=== PATIENT | male | born 1990 | race Asian ===

== ENCOUNTER 2020-09-03 16:41 | Emergency (ER) | payer OTHER ==
[~2020-09-03] VITALS: Ht 177.8 cm; Wt 56.7 kg
[2020-09-03 16:51] VITALS: BP 120/76
[2020-09-03] MEDS ORDERED: Omnipaque-300 100ml vial INJ PRN (17:00)
--- NOTE | 2020-09-03 17:00 | NUR ---
ED Nurse Note: PT walked in to ed for c/o dark / black stool for about 3 days. pt denies any abd pain, denies any n/v/d. PT reports having occasional dizziness.
--- NOTE | 2020-09-03 17:10 | NUR ---
ED Nurse Note: blood sna urine sample collected and sent to lab.
--- NOTE | 2020-09-03 17:16 | NUR ---
ED Nurse Note: cxr taken at bedside.
[2020-09-03 17:31] LABS: APPEARANCE,URINE CLEAR; BILIRUBIN, URINE NEGATIVE (NEGATIVE); COLOR,URINE PALE YELLOW; GLUCOSE, URINE (UA) NEGATIVE (NEGATIVE); KETONES,URINE NEGATIVE (NEGATIVE); LEUKOCYTE ESTERASE ,URINE 1+ (NEGATIVE); NITRITE,URINE NEGATIVE (NEGATIVE); PH,URINE 7 (4.5-8.0); PROTEIN,URINE NEGATIVE (NEGATIVE); UROBILINOGEN,URINE NORMAL MG/DL (0.0-1.0)
[2020-09-03 17:32] LABS: BASOPHILS % (AUTO) 1.7 % (0.0-2.0); EOSINOPHILS % (AUTO) 2.7 % (0.0-3.0); HEMATOCRIT 31.6 % (42.0-52.0); HEMOGLOBIN 10.1 G/DL (14.2-18.0); LYMPHOCYTES % (AUTO) 34.9 % (20.0-45.0); MEAN CORPUSCULAR VOLUME 84 FL (80-99); MONOCYTES % (AUTO) 8.6 % (1.0-10.0); NEUTROPHILS % (AUTO) 52.1 % (45.0-75.0); PLATELET COUNT 297 K/UL (150-450); RED BLOOD COUNT 3.76 M/UL (4.70-6.10); RED CELL DISTRIBUTION WIDTH 14.9 % (11.6-14.8); WHITE BLOOD COUNT 5.5 K/UL (4.8-10.8)
[2020-09-03 17:42] LABS: ANION GAP 8 mmol/L (5-15); BLOOD UREA NITROGEN 22 mg/dL (7-18); CALCIUM 8.4 MG/DL (8.5-10.1); CARBON DIOXIDE 26 MMOL/L (21-32); CHLORIDE 103 MMOL/L (98-107); POTASSIUM 3.5 MMOL/L (3.5-5.1); SODIUM 137 MMOL/L (136-145)
[2020-09-03 17:46] LABS: ALANINE AMINOTRANSFERASE 17 U/L (12-78); ALBUMIN/GLOBULIN RATIO 1.3 (1.0-2.7); ALKALINE PHOSPHATASE 59 U/L (46-116); ASPARTATE AMINO TRANSFERASE 22 U/L (15-37); BILIRUBIN,TOTAL 0.4 MG/DL (0.2-1.0)
--- NOTE | 2020-09-03 17:52 | Diagnostic Imaging Report ---
EXAM: XR Chest, 1 View CLINICAL HISTORY: PAIN TECHNIQUE: Frontal view of the chest. COMPARISON: No relevant prior studies available. FINDINGS: Lungs: Unremarkable. No consolidation. Pleural space: Unremarkable. No pneumothorax. Heart: Unremarkable. No cardiomegaly. Mediastinum: Unremarkable. Bones/joints: No acute abnormality IMPRESSION: 1. No acute cardiopulmonary disease. 2. If there is continued concern recommend frontal and lateral chest radiographs or CT.
--- NOTE | 2020-09-03 18:28 | NUR ---
ED Nurse Note: pt taken to CT scan via gurney by pest technician in stable condition.
--- NOTE | 2020-09-03 18:56 | NUR ---
ED Nurse Note: back from ct
--- NOTE | 2020-09-03 19:03 | NUR ---
ED Nurse Note: Report given to TAMI Haney. Endorsed plan of care.
--- NOTE | 2020-09-03 19:09 | Diagnostic Imaging Report ---
EXAM: CT Abdomen and Pelvis With Intravenous Contrast CLINICAL HISTORY: PAIN TECHNIQUE: Axial computed tomography images of the abdomen and pelvis with intravenous contrast. CTDI is 3.20 mGy and DLP is 143.60 mGy-cm. One or more of the following dose reduction techniques were used: automated exposure control, adjustment of the mA and/or kV according to patient size, use of iterative reconstruction technique. Coronal and sagittal reformatted images were created and reviewed. COMPARISON: No relevant prior studies available. FINDINGS: Lung bases: Unremarkable. No mass. No consolidation. ABDOMEN: Liver: Unremarkable. No mass. Gallbladder and bile ducts: Unremarkable. No calcified stones. No ductal dilation. Pancreas: Unremarkable. No mass. No ductal dilation. Spleen: Unremarkable. No splenomegaly. Adrenals: Unremarkable. No mass. Kidneys and ureters: Unremarkable. No solid mass. No hydronephrosis. Stomach and bowel: Liquid small bowel contents could be incidental or could represent an infectious or inflammatory enteritis in the proper context. No obstruction. PELVIS: Appendix: Normal appendix. Bladder: Urinary bladder wall thickening could be incidental, due to high outlet pressures, or could represent cystitis. Reproductive: Unremarkable as visualized. ABDOMEN and PELVIS: Intraperitoneal space: Unremarkable. No free air. No significant fluid collection. Bones/joints: No acute fracture. No dislocation. Soft tissues: Unremarkable. Vasculature: Unremarkable. No abdominal aortic aneurysm. Lymph nodes: Unremarkable. No enlarged lymph nodes. IMPRESSION: 1. Liquid small bowel contents could be incidental or could represent an infectious or inflammatory enteritis in the proper context. 2. Urinary bladder wall thickening could be incidental, due to high outlet pressures, or could represent cystitis. 3. Otherwise no acute abnormality definitively identified to account for patient presentation. 4. Normal appendix.
--- NOTE | 2020-09-03 19:19 | Emergency Room Report ---
History of Present Illness General Chief Complaint: Gastrointestinal Bleed Source: Patient Present Illness HPI 29-year-old male with no signal past medical history here complaining of 3 days of dark stool without any active focus of bleeding. 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 Has not yet follow-up with set o type operator. Complains of intermittent abdominal pain described as cramping. Complains of acid reflux, denies nausea or vomiting. Denies any bloody emesis. Denies fever and chills, cough and congestion. Reports in the past few days he has been feeling dizzy however has not had any syncopal episode. Denies chest pain, shortness of. Denies all other associated symptoms. Reports that he chews tobacco and he chews water and says no to all other drugs. Also reports that he often drinks alcohol. Reports that he eats greasy and spicy food as well. Denies penile discharge, denies anal discharge or bleeding. Allergies: Coded Allergies: No Known Allergies (Unverified , 09/03/20) COVID-19 Screening Contact w/high risk pt: No Experienced COVID-19 symptoms?: No COVID-19 Testing performed METROLOGIST: No Patient History Past Medical History: see triage record Past Surgical History: none Pertinent Family History: none Social History: Reports: smoking, alcohol use Immunizations: UTD Reviewed Nursing Documentation: PMH: Agreed; PSxH: Agreed Nursing Documentation-PM Past Medical History: No Stated History Review of Systems All Other Systems: negative except mentioned in HPI Physical Exam Vital Signs Date Time Temp Pulse Resp B/P (MAP) Pulse Ox O2 Delivery O2 Flow Rate FiO2 09/03/20 16:50 98.4 101 18 122/80 (94) 96 Room Air Sp02 EP Interpretation: reviewed, normal General Appearance: no apparent distress, alert, GCS 15, non-toxic Head: normocephalic, atraumatic Eyes: bilateral eye normal inspection, bilateral eye PERRL ENT: hearing grossly normal, normal pharynx, no angioedema, normal voice Neck: full range of motion, supple, supple/symm/no masses Respiratory: chest non-tender, lungs clear, normal breath sounds, speaking full sentences Cardiovascular #1: regular rate, rhythm, no edema Gastrointestinal: normal bowel sounds, non tender, soft, no mass, no organomegaly, no peritonitis, no bruit, non-distended, no guarding, no rebound Rectal: deferred Genitourinary: no CVA tenderness Musculoskeletal: back normal Neurologic: alert, motor strength/tone normal, oriented x3, sensory intact, responsive, speech normal Psychiatric: judgement/insight normal, memory normal, mood/affect normal, no suicidal/homicidal ideation Skin: no rash Lymphatic: no adenopathy Medical Decision Making PA Attestation ALL Diagnosis and treatment plan reviewed and discussed with my supervising physician Dr. Delcid Diagnostic Impression: Primary Impression: Infectious enteritis Additional Impression: Anemia ER Course 29-year-old male with no signal past medical history here complaining of 3 days of dark stool without any active focus of bleeding. 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 Has not yet follow-up with set o type operator. Complains of intermittent abdominal pain described as cramping. Complains of acid reflux, denies nausea or vomiting. Denies any bloody emesis. Denies fever and chills, cough and congestion. Reports in the past few days he has been feeling dizzy however has not had any syncopal episode. Denies chest pain, shortness of. Denies all other associated symptoms. Reports that he chews tobacco and he chews water and says no to all other drugs. Also reports that he often drinks alcohol. Reports that he eats greasy and spicy food as well. Denies penile discharge, denies anal discharge or bleeding. Ddx considered but are not limited to: appendicitis, cholecystis, gastritis, gastroenteritis, UTI, pyelonephritis, SBO, diverticulitis, influenza with GI manifestation, pancreatitis Vital signs: are WNL, pt. is afebrile H&PE are most consistent with: Infectious enteritis, anemia, methamphetamine abuse, marijuana abuse ORDERS: abdominal CT, abdominal pain set, EKG, Protonix, Cipro, Flagyl was not given due to patient drinking alcohol frequently,, dicyclomine, ferrous sulfate ED INTERVENTIONS: NS bolus, DISCHARGE: At this time pt. is stable for d/c to home. Will provide printed patient care instructions, and any necessary prescriptions. Care plan and follow up instructions have been discussed with the patient prior to discharge. Patient take medications set o type operator, avoid marijuana use, tobacco smoke, alcohol intake, amphetamine use. If worsening symptoms return to the emergency room EKG Diagnostic Results Rate: normal Rhythm: NSR ST Segments: no acute changes Other Impression No acute ST changes ASA given to the pt in ED: No Chest X-Ray Diagnostic Results Chest X-Ray Diagnostic Results : Chest X-Ray Ordered: Yes # of Views/Limited/Complete: 1 View Indication: Other EP Interpretation: Yes PA Xray: Interpretation reviewed, by supervising MD, and agrees with findings. Interpretation: no consolidation, no effusion, no pneumothorax Impression: No acute disease Electronically Signed by: Parris LARA Scribladi Text TECHNIQUE: Frontal view of the chest. COMPARISON: No relevant prior studies available. FINDINGS: Lungs: Unremarkable. No consolidation. Pleural space: Unremarkable. No pneumothorax. Heart: Unremarkable. No cardiomegaly. Mediastinum: Unremarkable. Bones/joints: No acute abnormality IMPRESSION: 1. No acute cardiopulmonary disease. 2. If there is continued concern recommend frontal and lateral chest radiographs or CT. CT/MRI/US Diagnostic Results CT/MRI/US Diagnostic Results : Imaging Test Ordered: CT abdomen pelvis with contrast Impression FINDINGS: Lung bases: Unremarkable. No mass. No consolidation. ABDOMEN: Liver: Unremarkable. No mass. Gallbladder and bile ducts: Unremarkable. No calcified stones. No ductal dilation. Pancreas: Unremarkable. No mass. No ductal dilation. Spleen: Unremarkable. No splenomegaly. Adrenals: Unremarkable. No mass. Kidneys and ureters: Unremarkable. No solid mass. No hydronephrosis. Stomach and bowel: Liquid small bowel contents could be incidental or could r epresent an infectious or inflammatory enteritis in the proper context. No obstruction. PELVIS: Appendix: Normal appendix. Bladder: Urinary bladder wall thickening could be incidental, due to high outlet pressures, or could represent cystitis. Reproductive: Unremarkable as visualized. ABDOMEN and PELVIS: Intraperitoneal space: Unremarkable. No free air. No significant fluid colle ction. Bones/joints: No acute fracture. No dislocation. Soft tissues: Unremarkable. Vasculature: Unremarkable. No abdominal aortic aneurysm. Lymph nodes: Unremarkable. No enlarged lymph nodes. IMPRESSION: 1. Liquid small bowel contents could be incidental or could represent an infectious or inflammatory enteritis in the proper context. 2. Urinary bladder wall thickening could be incidental, due to high outlet pressures, or could represent cystitis. 3. Otherwise no acute abnormality definitively identified to account for patient presentation. 4. Normal appendix. Last Vital Signs Date Time Temp Pulse Resp B/P (MAP) Pulse Ox O2 Delivery O2 Flow Rate FiO2 09/03/20 16:51 97 16 Room Air 09/03/20 16:51 98.4 120/76 97 Disposition: HOME, SELF-CARE Condition: Stable Scripts Ferrous Sulfate* (FERROUS SULFATE*) 325 Mg Tablet 325 MG ORAL TWICE A DAY for SUPPLEMENT, #60 TAB 0 Refills Prov: Parris Awad 09/03/20 Dicyclomine Hcl* (DICYCLOMINE HCL*) 10 Mg Capsule 10 MG ORAL TID, #10 CAP Prov: Parris Awad 09/03/20 Ciprofloxacin* (CIPRO*) 500 Mg Tablet 500 MG PO BID for 7 Days, #14 TAB Prov: Parris Awad 09/03/20 Pantoprazole* (PROTONIX*) 40 Mg Tablet.dr 40 MG ORAL DAILY, #30 TAB Prov: Parris Awad 09/03/20 Referrals: NON PHYSICIAN (PCP) Patient Instructions: Anemia, Nonspecific, Colitis Additional Instructions: , Follow-up with set o type operator, avoid alcohol intake and spicy acidic food, avoid marijuana use, methamphetamine abuse, if worsening symptoms return to the emergency room Parris Awad Sep 03, 2020 19:19
[2020-09-03] MEDS ORDERED: PROTONIX40 MG ORAL (19:20)
[2020-09-03] MEDS ORDERED: CIPRO500 MG PO (19:20)
[2020-09-03] MEDS ORDERED: DICYCLOMINE HCL10 MG ORAL (19:20)
[2020-09-03] MEDS ORDERED: FERROUS SULFAT325 MG ORAL (19:21)
[2020-09-03 19:40] VITALS: BP 118/72
--- NOTE | 2020-09-03 19:40 | NUR ---
ER DISCHARGE NOTE: Patient is cleared to be discharged per ERMD, pt is aox4, on room air, with stable vital signs. pt was given dc and prescription instructions, pt was able to verbalize understanding, pt id band and iv site removed without complications. pt is able to ambulate with steady gait. pt took all belongings.
--- NOTE | 2020-09-04 19:32 | Cardiology Report ---
APPROVED REPORT EKG Measurement Heart [id number] <Conclusion> Normal sinus rhythm Right axis deviation Right bundle branch block Abnormal ECG
== END 2020-09-03 19:40 | disposition home or self-care (01) ==
LOC: EMR 17:25
DX: A09 Infectious gastroenteritis and colitis, unspecified (principal); D64.9 Anemia, unspecified; F17.200 Nicotine dependence, unspecified, uncomplicated; K21.9 Gastro-esophageal reflux disease without esophagitis
CPT/HCPCS: 36415; 71045; 74177; 80053; 80307; 81003; 83690; 84484; 85025; 85610; 85730; 93005; 96360; 99284; G0480; Q9965